=== PATIENT | female | born 1975 | race Caucasian/White ===

== ENCOUNTER 2017-08-18 08:00 | Outpatient (CLI) | payer BC | END 2017-08-18 08:01 | disposition home or self-care (01) | LOC: BICMAMMO 08:00 | PROVIDERS: ATTEND Obstetrics & Gynecology | DX: Z12.31 Encounter for screening mammogram for malignant neoplasm of breast (principal) | CPT/HCPCS: 77063; 77067; G0202 ==

== ENCOUNTER 2018-03-29 14:43 | Outpatient (CLI) | payer BC | END 2018-03-29 14:44 | disposition home or self-care (01) | LOC: LABBT 14:43 | PROVIDERS: ATTEND Surgery | DX: Z01.812 Encounter for preprocedural laboratory examination (principal); K80.20 Calculus of gallbladder without cholecystitis without obstruction | CPT/HCPCS: 80076; 85025; 93005; 93010 ==

== ENCOUNTER 2018-03-31 09:56 | Day surgery (SDC) | payer BC ==
[2018-03-29 15:43] LABS: #Basophils 0.1 thou/uL (0.0-0.2); #Eosinphils 0.1 thou/uL (0.0-0.7); #Lymphocytes 2.9 thou/uL (1.20-3.40); #Monocytes 0.8 thou/uL (0.11-0.59); #Neutrophils 4.5 thou/uL (1.40-6.50); %Basophils 1.4 % (0.0-1.0); %Eosinophils 1.5 % (0.0-10.0); %Lymphocytes 34.4 % (21.0-51.0); %Monocytes 9.2 % (0.0-10.0); %Neutrophils 53.5 % (42.0-75.0); Hemoglobin 14.1 g/dL (12.0-16.0); Mean Corpuscular HGB CONC 33.7 g/dL (32.0-36.0); Mean Corpuscular Volume 92.1 fL (78.0-98.0); Mean Platelet Volume 7.7 fL (7.4-10.4); Platelet Count 322 thou/uL (130-400); RBC Distribution Width 11.5 % (11.5-14.5); Red Blood Cell (RBC) Count 4.56 mill/uL (4.20-5.40); White Blood Cell (WBC) Count 8.4 thou/uL (4.8-10.8)
[2018-03-29 16:05] LABS: ALT (SGPT) 10 U/L (8-55); AST (SGOT) 15 U/L (5-34); Albumin 4.2 g/dL (3.5-5.0); Alkaline Phosphatase 85 U/L (40-150); Anion Gap 12 mmol/L (10-20); BUN (Urea Nitrogen) 15 mg/dL (7.0-18.7); Bilirubin, Direct 0.2 mg/dL (0.1-0.3); Bilirubin, Total 0.6 mg/dL (0.2-1.2); Calc. Creatinine Clearance 0 mL/min (70-130); Calcium 9.6 mg/dL (7.8-10.44); Carbon Dioxide 28 mmol/L (22-29); Chloride 103 mmol/L (98-107); Estimated GFR-MDRD 69; Glucose 83 mg/dL (70-105); Potassium 3.2 mmol/L (3.5-5.1); Protein, Total 7.8 g/dL (6.0-8.3); Sodium 140 mmol/L (136-145)
[2018-03-31] MEDS ORDERED: CEFAZOLIN/Water 2 GM/20 ML SYRINGE ONE (10:11)
[2018-03-31] MEDS ORDERED: Fentanyl 250 MCG/5 ML VIAL ONE (10:38)
[2018-03-31] MEDS ORDERED: Lidocaine 2% Jelly 5 ML TUBE ONE (10:38)
[2018-03-31] MEDS ORDERED: Midazolam HCl 2 mg/2 ml Vial ONE (10:38)
[2018-03-31] MEDS ORDERED: Bupivacaine/Epinephrine 0.25% 30 ML VIAL ONE (11:39)
[2018-03-31] MEDS ORDERED: Levofloxacin 500 mg/D5W 100 ml Premix Bag ONE (11:48)
[2018-03-31] MEDS ORDERED: PROPOFOL 200 MG/20 ML VIAL ONE (12:57)
[2018-03-31] MEDS ORDERED: Glycopyrrolate 0.2 MG/ML 5 ML SYRINGE ONE (12:57)
[2018-03-31] MEDS ORDERED: Ketorolac Tromethamine 30 MG/ML VIAL ONE (12:57)
[2018-03-31] MEDS ORDERED: Dexamethasone 20 MG/5 ML VIAL ONE (12:57)
[2018-03-31] MEDS ORDERED: Ondansetron HCl/PF 4 MG/2 ML Vial ONE (12:57)
[2018-03-31] MEDS ORDERED: Lidocaine 1% PF 5 ML VIAL ONE (12:57)
[2018-03-31] MEDS ORDERED: Fentanyl 100 MCG/2 ML VIAL ONE (13:42)
[2018-03-31] MEDS ORDERED: Promethazine HCl 25 MG/ML VIAL ONE (13:59)
--- NOTE | 2018-04-03 11:35 | OP ---
DATE OF PROCEDURE: 03/31/2018 PREOPERATIVE DIAGNOSIS: Symptomatic gallstones. POSTOPERATIVE DIAGNOSIS: Symptomatic gallstones. PROCEDURE PERFORMED: Laparoscopic cholecystectomy. SURGEON: Dr. Raymond Zafar. ANESTHESIA: General. ESTIMATED BLOOD LOSS: Minimal. COMPLICATIONS: None. SPECIMEN: Gallbladder. FINDINGS: Significant acute cholecystitis. TECHNIQUE: The patient was taken to the operating room and placed supine on the table. After genera l anesthetic is obtained, the abdomen is prepped and draped in a sterile fashion. Curved incision ma de below the umbilicus. Cautery was used to dissect down to and score the fascia. Abdominal cavity entered bluntly using a Demetria clamp. Holding stitch of PDS was placed on each side of the fascia. H assan trocar was placed. High-flow pneumoperitoneum was obtained. The patient was placed in reverse Trendelenburg position. Three 5 mm upper abdominal incisions are placed. The gallbladder was acute ly inflamed, very difficult to retract. It was retracted up over the liver. The peritoneum is opene d over the fundus of the gallbladder. The cystic duct and cystic artery were able to be found and di ssected free. Critical view triangle was seen showing only the cystic duct and cystic artery branchi ng from medial to lateral. There were no other branching structures. Two clips were placed proximal on the cystic duct and one laterally. It was cut using laparoscopic scissors. Cystic artery was ta rosanna in the same way. Cautery was then used to dissect the gallbladder out of the gallbladder fossa. There was significant locally inflamed tissue in the liver bed. Gallbladder was removed from the ab dominal cavity through the umbilicus after being put in an Endo catch bag. There is no bleeding in t he liver bed. No injury to any intra-abdominal structures. Right upper quadrant was irrigated using sterile solution until returns are clear. All port sites are infiltrated using local anesthetic and removed under direct visualization. Pneumoperitoneum was let down. PDS was used to close the fasci al defect below the umbilicus. All incisions were irrigated and closed using 4-0 Monocryl and Dermab ond. The patient is en route to recovery in stable condition. All instrument counts, needle counts, lap counts were correct.
== END 2018-03-31 15:35 | disposition home or self-care (01) ==
LOC: SDC 09:56
PROVIDERS: ATTEND Surgery
PROC: 0FT44ZZ Resection of Gallbladder, Percutaneous Endoscopic Approach (ICD-10-PCS; principal; 2018-03-31)
DX: K80.10 Calculus of gallbladder with chronic cholecystitis without obstruction (principal); I10 Essential (primary) hypertension; G43.909 Migraine, unspecified, not intractable, without status migrainosus; Z79.899 Other long term (current) drug therapy; Z88.0 Allergy status to penicillin
CPT/HCPCS: 80048; 80076; 85025; 88304; 96374; 96375; J1100; J1885; J1956; J2001; J2250; J2405; J2550; J2704; J3010

== ENCOUNTER 2018-09-04 15:22 | Outpatient (CLI) | payer BC | END 2018-09-04 15:23 | disposition home or self-care (01) | LOC: BICMAMMO 15:22 | PROVIDERS: ATTEND Obstetrics & Gynecology | DX: Z12.31 Encounter for screening mammogram for malignant neoplasm of breast (principal) | CPT/HCPCS: 77063; 77067 ==